=== PATIENT | male | born 1965 | race Caucasian/White ===

== ENCOUNTER 2016-12-16 10:38 | Emergency (ER) | payer MEDICARE, OTHER ==
[2016-12-16 11:14] VITALS: PULSE 89; RESP 20
[2016-12-16 12:29] VITALS: BP 132/74; TEMP 97.4; O2SAT 93
== END 2016-12-16 11:32 | disposition home or self-care (01) | DRG 885 ==
LOC: ED 10:38
DX: F31.9 Bipolar disorder, unspecified (principal)
CPT/HCPCS: 99282

== ENCOUNTER 2017-01-30 11:10 | Emergency (ER) | payer MEDICARE, OTHER ==
[2017-01-30 11:15] VITALS: RESP 20; TEMP 97.6
[2017-01-30 11:34] LABS: BASOPHILS % (AUTO) 1 % (0-3); EOSINOPHILS % (AUTO) 0 % (0-9); HEMATOCRIT 36 % (39-53); MEAN CORPUSCULAR HGB CONC 36.1 gm/dl (32.0-36.0); MEAN CORPUSCULAR VOLUME 85 fL (80-100); MONOCYTES % (AUTO) 3.4 % (0-12); NEUTROPHILS % (AUTO) 85.1 % (37-80)
[2017-01-30 11:46] LABS: POTASSIUM 3.7 mMol/L (3.5-5.1)
[2017-01-30] MEDS ORDERED: SODIUM CHLORIDE 0.9% 1000ML 1,000 ML IV ONE (11:51)
[2017-01-30 13:08] VITALS: BP 140/93; PULSE 60; O2SAT 98
[2017-01-30] MEDS ORDERED: PANTOPRAZOLE SODIUM 40 MG/10 ML PDS IV ONE (13:08)
[2017-01-30] MEDS ORDERED: PANTOPRAZOLE SODIUM 40 MG/10 ML PDS ONE (13:34)
== END 2017-01-30 13:35 | disposition short-term general hospital (02) | DRG 379 ==
LOC: ED 11:10
DX: K92.2 Gastrointestinal hemorrhage, unspecified (principal)
CPT/HCPCS: 80048; 85025; 99283

== ENCOUNTER 2017-07-17 20:31 | Emergency (ER) | payer MEDICARE, OTHER ==
[2017-07-17 20:44] VITALS: RESP 18; TEMP 97.8; O2SAT 99
[2017-07-17 21:28] VITALS: BP 129/82; PULSE 88
== END 2017-07-17 21:18 | disposition home or self-care (01) | DRG 914 ==
LOC: ED 20:31
DX: S09.90XA Unspecified injury of head, initial encounter (principal); W51.XXXA Accidental striking against or bumped into by another person, initial encounter
CPT/HCPCS: 99282

== ENCOUNTER 2017-07-23 00:28 | Emergency (ER) | payer MEDICARE, OTHER ==
[2017-07-23 00:41] VITALS: RESP 22; TEMP 96.3; O2SAT 98
[2017-07-23] MEDS ORDERED: LIDOCAINE HCL 1% MPF SOL ONE (00:45)
[2017-07-23] MEDS ORDERED: LIDOCAINE HCL 1% MDV SOL SC ONE (00:54)
[2017-07-23] MEDS ORDERED: TDAP VACCINE 0.5 ML SUS IM ONE ×2 (00:54→00:55)
[2017-07-23 01:44] VITALS: BP 116/89; PULSE 82
== END 2017-07-23 01:16 | disposition home or self-care (01) | DRG 605 ==
LOC: ED 00:28
DX: S61.012A Laceration without foreign body of left thumb without damage to nail, initial encounter (principal)
CPT/HCPCS: 12001; 90471; 90715; 99284; J2001